=== PATIENT | male | born 1955 | race African-American/Black ===

== ENCOUNTER 2018-08-14 11:28 | Emergency (ER) | payer MEDICAID, OTHER ==
[~2018-08-14] VITALS: Ht 172.7 cm; Wt 131.0 kg
[2018-08-14 17:56] LABS: CLARITY URINE TURBID (CLEAR); COLOR URINE YELLOW (YELLOW); KETONES URINE NEGATIVE (NEGATIVE); LEUKOCYTE ESTERASE URINE 3+ (NEGATIVE); NITRITE URINE POSITIVE (NEGATIVE); OCCULT BLOOD URINE 3+ (NEGATIVE); PH URINE 6.5 (4.5-8.0); PROTEIN URINE 2+ (NEGATIVE); SPECIFIC GRAVITY URINE 1.015 (1.005-1.030)
[2018-08-14] MEDS ORDERED: PHENAZOPYRIDINE HCL 100MG TABLET PO ONE (18:00)
[2018-08-14] MEDS ORDERED: NITROFURANTOIN 100MG M/M CAPSULE PO ONE (18:00)
[2018-08-14 19:01] VITALS: BP 117/84
== END 2018-08-14 19:10 | disposition home or self-care (01) ==
LOC: ER 11:28
DX: N39.0 Urinary tract infection, site not specified (principal); I10 Essential (primary) hypertension; K21.9 Gastro-esophageal reflux disease without esophagitis; N40.0 Benign prostatic hyperplasia without lower urinary tract symptoms
CPT/HCPCS: 87077; 87186; 99283

== ENCOUNTER 2018-09-09 10:27 | Emergency (ER) | payer OTHER ==
[~2018-09-09] VITALS: Ht 182.9 cm; Wt 137.0 kg
[2018-09-09 11:31] LABS: CLARITY URINE CLOUDY (CLEAR); COLOR URINE YELLOW (YELLOW); KETONES URINE NEGATIVE (NEGATIVE); LEUKOCYTE ESTERASE URINE 3+ (NEGATIVE); NITRITE URINE POSITIVE (NEGATIVE); OCCULT BLOOD URINE 2+ (NEGATIVE); PH URINE 6.5 (4.5-8.0); PROTEIN URINE 1+ (NEGATIVE); SPECIFIC GRAVITY URINE 1.018 (1.005-1.030)
[2018-09-09 11:52] LABS: HEMATOCRIT. 40.3 % (42.0-52.0); HEMOGLOBIN. 13.3 g/dL (14.0-18.0); MEAN CORPUSCULAR HEMOGLOBIN 32.4 pg (28.0-32.0); MEAN CORPUSCULAR VOLUME 98.2 fL (80.0-94.0); PLATELET 186 x1000/uL (130-400); RED CELL DISTRIBUTION WIDTH 14.2 % (11.6-14.6)
[2018-09-09 11:56] LABS: CHLORIDE 105 mEq/L (98-107)
[2018-09-09 11:57] LABS: INR 1.1; PROTHROMBIN TIME 11.5 sec (9.6-11.0)
[2018-09-09] MEDS ORDERED: IBUPROFEN 600MG TABLET PO ONE (12:15)
[2018-09-09 12:23] LABS: PLATELET ESTIMATE NORMAL
[2018-09-09 13:00] VITALS: BP 110/72
== END 2018-09-09 13:37 | disposition home or self-care (01) ==
LOC: ER 10:27
DX: N12 Tubulo-interstitial nephritis, not specified as acute or chronic (principal); K21.9 Gastro-esophageal reflux disease without esophagitis; I10 Essential (primary) hypertension; F20.9 Schizophrenia, unspecified
CPT/HCPCS: 36415; 84484; 87077; 87186; 93005; 99284

== ENCOUNTER 2021-10-09 11:12 | Emergency (ER) | payer OTHER ==
[~2021-10-09] VITALS: Ht 172.7 cm; Wt 127.0 kg
[2021-10-09 11:41] VITALS: BP 116/72
[2021-10-09] MEDS ORDERED: ACETAMINOPHEN 325MG TABLET PO STA (12:01)
[2021-10-09] MEDS ORDERED: ACETAMINOPHEN 325MG TABLET PO NR (14:45)
[2021-10-09 16:30] LABS: CLARITY URINE CLOUDY (CLEAR); COLOR URINE DARK YELLOW (YELLOW); KETONES URINE TRACE (NEGATIVE); LEUKOCYTE ESTERASE URINE 2+ (NEGATIVE); NITRITE URINE POSITIVE (NEGATIVE); OCCULT BLOOD URINE 2+ (NEGATIVE); PROTEIN URINE 2+ (NEGATIVE); SPECIFIC GRAVITY URINE 1.021 (1.005-1.030)
[2021-10-09] MEDS ORDERED: SULF1TAB48 PO (17:30)
[2021-10-09] MEDS ORDERED: NAPR-681 PO (17:30)
[2021-10-09] MEDS ORDERED: GUAI237L83 PO (17:30)
== END 2021-10-09 17:30 | disposition home or self-care (01) ==
LOC: ER 11:22
DX: U07.1 COVID-19 (principal); N39.0 Urinary tract infection, site not specified; Z86.59 Personal history of other mental and behavioral disorders; I10 Essential (primary) hypertension
CPT/HCPCS: 71045; 72100; 81003; 87426; 99284; C9803